=== PATIENT | male | born 1975 | race Caucasian/White ===

== ENCOUNTER 2017-12-24 11:55 | Observation (INO) | payer OTHER ==
[~2017-12-24 11:55] MED LIST: GLYCOPYRROLATE INJ 0.4 MG/2 ML VIAL ONE; NEOSTIGMINE METHYLSULFATE 10 MG/10 ML VIAL ONE; SUCCINYLCHOLINE CHLORIDE INJ 200 MG/10 ML VIAL ONE; VECURONIUM BROMIDE INJ 10 MG VIAL IV ONE
--- NOTE | 2017-12-24 12:17 | ER Document Report ---
ED Medical Screen (RME) - General Chief Complaint: Abdominal Pain Stated Complaint: ABDOMINAL PAIN Time Seen by Provider: 12/24/17 12:12 Notes: RAPID MEDICAL EVALUATION DISCLOSURE I have seen this patient as part of a Rapid Medical Evaluation and, if applicable, placed any initially appropriate orders. The patient will be seen and fully evaluated, including a full history and physical exam, by a provider ( in Main ED or Fast Track) when a room becomes available. 42M sent here from urgent care for right lower quadrant abdominal pain that started yesterday. Pain is been constant. Pain is worse with standing. He has had some chills but no fevers nausea vomiting diarrhea hematuria dysuria frequency hesitancy flank/back pain. They sent him over here because his WBC count was 13.8. Of note, the patient is getting over a "virus" and was prescribed Tessalon Perles as well as prednisone which he finished 2 days ago. The paperwork he has with him reports "acute abdomen". EXAM Well-appearing nontoxic Able to stand without significant pain Minimal RLQ TTP, no CVA TTP No peritoneal signs TRAVEL OUTSIDE OF THE [place] IN LAST 30 DAYS: No - Related Data Allergies/Adverse Reactions: No Known Allergies Allergy (Verified 12/24/17 12:17) Physical Exam - Vital signs Vitals: Temp Pulse Resp BP Pulse Ox 97.7 F 74 16 122/92 H 98 12/24/17 11:59 12/24/17 11:59 12/24/17 11:59 12/24/17 11:59 12/24/17 11:59 Course - Vital Signs Vital signs: Temp Pulse Resp BP Pulse Ox 97.7 F 74 16 122/92 H 98 12/24/17 11:59 12/24/17 11:59 12/24/17 11:59 12/24/17 11:59 12/24/17 11:59
--- NOTE | 2017-12-24 12:43 | ER Document Report ---
ED General - General Chief Complaint: Abdominal Pain Stated Complaint: ABDOMINAL PAIN Time Seen by Provider: 12/24/17 12:12 Mode of Arrival: Ambulatory Information source: Patient Notes: 42-year-old male presents with complaints of right lower quadrant abdominal pain. Patient notes symptoms started yesterday associated with chills, had fever today. Patient has had hernia repair and skin graft on his abdomen when he was younger otherwise no previous surgeries TRAVEL OUTSIDE OF THE [place] IN LAST 30 DAYS: No - HPI Onset: Yesterday Onset/Duration: Sudden Quality of pain: Pressure Severity: Mild Pain Level: 1 Associated symptoms: Other Exacerbated by: Movement Relieved by: Denies Similar symptoms previously: No Recently seen / treated by doctor: Yes - Patient sent in from [facility] urgent care - Related Data Allergies/Adverse Reactions: No Known Allergies Allergy (Verified 12/24/17 12:17) Past Medical History - Social History Smoking Status: Never Smoker Cigarette use (# per day): No Chew tobacco use (# tins/day): No Smoking Education Provided: No Frequency of alcohol use: Occasional Drug Abuse: None Family History: Reviewed & Not Pertinent Patient has suicidal ideation: No Patient has homicidal ideation: No Renal/ Medical History: Denies: Hx Peritoneal Dialysis Past Surgical History: Reports: Hx Orthopedic Surgery Review of Systems - Review of Systems Notes: REVIEW OF SYSTEMS: CONSTITUTIONAL : Admits to fever chill EENT: Denies eye, ear, throat, or mouth pain or symptoms. Denies nasal or sinus congestion or discharge. Denies throat, tongue, or mouth swelling or difficulty swallowing. CARDIOVASCULAR: Denies chest pain. Denies palpitations or racing or irregular heart beat. Denies ankle edema. RESPIRATORY: Intermittent cough GASTROINTESTINAL: Admits to right lower quadrant abdominal pain GENITOURINARY: Denies difficulty urinating, painful urination, burning, frequency, blood in urine, or discharge. MUSCULOSKELETAL: Denies back or neck pain or stiffness. Denies joint pain or swelling. SKIN: Denies rash, lesions or sores. HEMATOLOGIC : Denies easy bruising or bleeding. LYMPHATIC: Denies swollen, enlarged glands. NEUROLOGICAL: Denies confusion or altered mental status. Denies passing out or loss of consciousness. Denies dizziness or lightheadedness. Denies headache. Denies weakness or paralysis or loss of use of either side. Denies problems with gait or speech. Denies sensory loss, numbness, or tingling. Denies seizures. PSYCHIATRIC: Denies anxiety or stress. Denies depression, suicidal ideation, or homicidal ideation. ALL OTHER SYSTEMS REVIEWED AND NEGATIVE. Dictation was performed using [employer] voice recognition software PHYSICAL EXAMINATION: GENERAL: Well-appearing, well-nourished and in no acute distress. HEAD: Atraumatic, normocephalic. EYES: Pupils equal round and reactive to light, extraocular movements intact, sclera anicteric, conjunctiva are normal. ENT: Nares patent, oropharynx clear without exudates. Moist mucous membranes. NECK: Normal range of motion, supple without lymphadenopathy LUNGS: Breath sounds clear to auscultation bilaterally and equal. No wheezes rales or rhonchi. HEART: Regular rate and rhythm without murmurs ABDOMEN: Soft, mild tenderness right lower quadrant no rebound or guarding Musculoskeletal: Normal range of motion, no pitting or edema. No cyanosis. NEUROLOGICAL: Cranial nerves grossly intact. Normal speech, normal gait. Normal sensory, motor exams PSYCH: Normal mood, normal affect. SKIN: Warm, Dry, normal turgor, no rashes or lesions noted. Physical Exam - Vital signs Vitals: Temp Pulse Resp BP Pulse Ox 97.7 F 74 16 122/92 H 98 12/24/17 11:59 12/24/17 11:59 12/24/17 11:59 12/24/17 11:59 12/24/17 11:59 Course - Re-evaluation Re-evalutation: 12/24/17 12:42 Patient overall looks benign however his more stoic, lab work imaging pending 12/24/17 17:10 CT was consistent with appendicitis surgeon was consulted and will take the patient to the OR - Vital Signs Vital signs: Temp Pulse Resp BP Pulse Ox 98.6 F 72 16 126/80 H 98 12/24/17 16:02 12/24/17 16:02 12/24/17 16:02 12/24/17 16:02 12/24/17 16:02 - Laboratory Result Diagrams: 12/24/17 12:22 12/24/17 12:22 Laboratory results interpreted by me: 12/24/17 12/24/17 12:22 12:22 WBC 11.7 H Absolute Neutrophils 9.1 H Carbon Dioxide 31 H Glucose 114 H AST 14 L Alkaline Phosphatase 29 L - Diagnostic Test Radiology reviewed: Image reviewed - ct abd pelvis with oral and iv contrast notes acute appendicitis, Reports reviewed Discharge - Discharge Clinical Impression: Appendicitis Qualifiers: Appendicitis type: acute appendicitis Acute appendicitis type: with localized peritonitis Qualified Code(s): K35.3 - Acute appendicitis with localized peritonitis Condition: Stable Disposition: ADMITTED OBSERVATION Admitting Provider: Surgicalist Unit Admitted: Surgical Floor
[2017-12-24 12:45] LABS: ABSOLUTE EOSINOPHILS # (AUTO) 0.2 10^3/uL (0.0-0.6); ABSOLUTE LYMPHOCYTES (AUTO) 1.7 10^3/uL (0.5-4.7); ABSOLUTE MONOCYTES (AUTO) 0.6 10^3/uL (0.1-1.4); ABSOLUTE NEUT (AUTO) 9.1 10^3/uL (1.7-8.2); BASOPHILS % (AUTO) 0.4 % (0-2); EOSINOPHILS % (AUTO) 1.4 % (0-6); HEMATOCRIT 48.2 % (37.9-51.0); MEAN CORPUSCULAR HEMOGLOBIN 29.9 pg (27.0-33.4); MEAN CORPUSCULAR HGB CONC 33.2 g/dL (32.0-36.0); MEAN CORPUSCULAR VOLUME 90 fl (80-97); MONOCYTES % (AUTO) 5.5 % (3-13); PLATELET COUNT 219 10^3/uL (150-450); RED BLOOD COUNT 5.35 10^6/uL (4.35-5.55); RED CELL DISTRIBUTION WIDTH 13.9 % (11.5-14.0); SEGMENTED NEUTROPHILS % (AUTO) 77.7 % (42-78); TOTAL CELLS COUNTED % (AUTO) 100 %; WHITE BLOOD COUNT 11.7 10^3/uL (4.0-10.5)
[2017-12-24 12:49] LABS: APPEARANCE,URINE SLIGHTLY-CLOUDY; BILIRUBIN,URINE NEGATIVE (NEGATIVE); COLOR,URINE YELLOW; GLUCOSE, URINE NEGATIVE (NEGATIVE); KETONES,URINE NEGATIVE (NEGATIVE); LEUKOCYTE ESTERASE,URINE NEGATIVE (NEGATIVE); NITRITE,URINE NEGATIVE (NEGATIVE); PROTEIN,URINE NEGATIVE (NEGATIVE); URINE SPECIFIC GRAVITY 1.027; UROBILINOGEN,URINE NEGATIVE mg/dL (<2.0)
[2017-12-24 13:04] LABS: ALANINE AMINOTRANSFERASE 29 U/L (21-72); ALBUMIN 4.1 g/dL (3.5-5.0); ALKALINE PHOSPHATASE 29 U/L (38-126); ANION GAP 12 (5-19); ASPARTATE AMINO TRANSFERASE 14 U/L (17-59); BILIRUBIN,DIRECT 0.2 mg/dL (0.0-0.4); BILIRUBIN,TOTAL 0.8 mg/dL (0.2-1.3); BLOOD UREA NITROGEN 16 mg/dL (7-20); CALCIUM 9.5 mg/dL (8.4-10.2); CARBON DIOXIDE 31 mmol/L (22-30); CHLORIDE 100 mmol/L (98-107); GLUCOSE 114 mg/dL (75-110); LIPASE 58.2 U/L (23-300); POTASSIUM 4.4 mmol/L (3.6-5.0); TOTAL PROTEIN 6.7 g/dL (6.3-8.2)
--- NOTE | 2017-12-24 15:49 | RADIOLOGY REPORT (SQ) ---
EXAM DESCRIPTION: CT ABD/PELVIS WITH IV ORAL COMPLETED DATE/TIME: 12/24/2017 3:19 pm REASON FOR STUDY: RLQ pain COMPARISON: None. TECHNIQUE: CT scan of the abdomen and pelvis performed using helical scanning technique with dynamic intravenous contrast injection. Patient drank oral contrast. Images reviewed with lung, soft tissue , and bone windows. Reconstructed coronal and sagittal MPR images reviewed. Delayed images for evalua tion of the urinary system also acquired. All images stored on PACS. All CT scanners at this facility use dose modulation, iterative reconstruction, and/or weight based d osing when appropriate to reduce radiation dose to as low as reasonably achievable (ALARA). [facility]: Dose Right [facility]: CareDose [facility]: Dose Right [facility]: Teradose 4D [facility]: Your Office Agent CONTRAST TYPE AND DOSE: 94 mL of IV Isovue 370- low osmolar. RENAL FUNCTION: Creatinine 1.0 RADIATION DOSE: 20 mGy. LIMITATIONS: None. FINDINGS: The appendix is diffusely enlarged, with surrounding inflammation in the periappendiceal f at from acute appendicitis. This is best shown on axial images 71-75, coronal reconstruction images 26-35, and sagittal images 43-47. No periappendiceal abscess. No free air adjacent the appendix. F indings called to Stacey Ledbetter in the emergency room. LOWER CHEST: No significant findings. No nodules or infiltrates. LIVER: Normal size. No masses. No dilated ducts. SPLEEN: Normal size. No focal lesions. PANCREAS: No masses. No significant calcifications. No adjacent inflammation or peripancreatic fluid collections. Pancreatic duct not dilated. GALLBLADDER: No identified stones by CT criteria. No inflammatory changes to suggest cholecystitis. ADRENAL GLANDS: No significant masses or asymmetry. RIGHT KIDNEY AND URETER: No solid masses. No significant calcifications. No hydronephrosis or hyd roureter. LEFT KIDNEY AND URETER: No solid masses. No significant calcifications. No hydronephrosis or hydr oureter. AORTA AND VESSELS: No aneurysm. No dissection. Renal arteries, SMA, celiac without stenosis. RETROPERITONEUM: No retroperitoneal adenopathy, hemorrhage or masses. BOWEL AND PERITONEAL CAVITY: No masses or inflammatory changes. No free fluid or peritoneal masses. APPENDIX: As above. PELVIS: No mass. No free fluid. Normal bladder. ABDOMINAL WALL: No masses. No hernias. BONES: No significant or acute findings. OTHER: No other significant finding. IMPRESSION: Acute appendicitis. No periappendiceal free fluid or air. TECHNICAL DOCUMENTATION: JOB ID: [id number] Quality ID # [id number]: Final reports with documentation of one or more dose reduction techniques (e.g., Au tomated exposure control, adjustment of the mA and/or kV according to patient size, use of iterative reconstruction technique) 2010 [employer]- All Rights Reserved Reading location - IP/workstation name: [facility]
[2017-12-24] MEDS ORDERED: NORMAL SALINE 1000 ML 1,000 ML IV ONE (15:50)
[2017-12-24] MEDS ORDERED: LIDOCAINE 2% INJ-PF (20 MG/ML) 10 ML AMPUL ONE (16:50)
[2017-12-24] MEDS ORDERED: DEXAMETHASONE SOD PHOSPHATE INJ 4 MG/1 ML VIAL ONE (16:51)
[2017-12-24] MEDS ORDERED: MIDAZOLAM 2 MG/2 ML INJ ONE (16:51)
[2017-12-24] MEDS ORDERED: PROPOFOL INJ 200 MG/20 ML VIAL IV ONE (16:51)
[2017-12-24] MEDS ORDERED: ONDANSETRON HCL INJ/PF 4 MG/2 ML SDV ONE (16:51)
[2017-12-24] MEDS ORDERED: FENTANYL CITRATE INJ/PF 100 MCG/2 ML AMPUL ONE (16:51)
[2017-12-24] MEDS ORDERED: ACETAMINOPHEN 100 ML IV ONE (16:52)
[2017-12-24] MEDS ORDERED: CEFOXITIN SODIUM 2 GM in DEXTROSE 5%-WATER 100 ML IV PRN (16:52)
--- NOTE | 2017-12-24 16:52 | PDOC H&P ---
History of Present Illness Admission Date/PCP: 12/24/17 16:01 PHILLIP WRIGHT NP Patient complains of: RLQ abdominal pain History of Present Illness: PAO SAPP is a 42 year old male with a 1 day hx of RLQ abdoiminal poain. He came to the ER with this complaint and an acute appendicitis has been identified on CT scan A/P Past Surgical History Past Surgical History: Reports: Orthopedic Surgery Social History Smoking Status: Never Smoker Family History Family History: Reviewed & Not Pertinent Parental Family History Reviewed: No Children Family History Reviewed: No Sibling(s) Family History Reviewed.: No Medication/Allergy Home Medications: No Home Medications 12/24/17 Allergies/Adverse Reactions: No Known Allergies Allergy (Verified 12/24/17 12:17) Physical Exam Vital Signs: Temp Pulse Resp BP Pulse Ox 98.6 F 72 16 126/80 H 98 12/24/17 16:02 12/24/17 16:02 12/24/17 16:02 12/24/17 16:02 12/24/17 16:02 General appearance: PRESENT: no acute distress, cooperative Head exam: PRESENT: atraumatic Neck exam: PRESENT: full ROM Respiratory exam: PRESENT: clear to auscultation arslan Cardiovascular exam: PRESENT: RRR GI/Abdominal exam: PRESENT: hypoactive bowel sounds, soft, tenderness - RLQ Neurological exam: PRESENT: alert, altered, CN II-XII grossly intact, normal gait Skin exam: PRESENT: warm Results Impressions: Abdomen/Pelvis CT 12/24/17 00:00 IMPRESSION: Acute appendicitis. No periappendiceal free fluid or air. Assessment & Plan - Diagnosis (1) Appendicitis Qualifiers: Appendicitis type: acute appendicitis Acute appendicitis type: with localized peritonitis Qualified Code(s): K35.3 - Acute appendicitis with localized peritonitis Is this a current diagnosis for this admission?: Yes - Plan Summary Plan Summary: A/ RLQ abdominal pain Normal blood work CT scan A/P significant for acute appendicitis w/o perforation signs P/ Laparoscopic appendectomy, possible open Procedure, risks, complications d/w patient, he understands all of them and decides to proceed
[2017-12-24] MEDS ORDERED: BUPIVACAINE HCL 0.5%-EPI 1:200000 INJ/PF 30 ML VIAL ONE (17:12)
[2017-12-24] MEDS ORDERED: MORPHINE SULFATE 10 MG/ML INJ IV PRN (17:54)
[2017-12-24] MEDS ORDERED: PROMETHAZINE HCL INJ 25 MG/1 ML VIAL IV PRN ×2 (17:54)
[2017-12-24] MEDS ORDERED: ONDANSETRON HCL INJ/PF 4 MG/2 ML SDV IV PRN ×2 (17:54→18:57)
[2017-12-24] MEDS ORDERED: FENTANYL CITRATE INJ/PF 100 MCG/2 ML AMPUL IV PRN ×3 (17:54)
[2017-12-24] MEDS ORDERED: MEPERIDINE HCL/PF INJ 25 MG/1 ML DISP.SYRIN IV PRN (17:54)
[2017-12-24] MEDS ORDERED: DIPHENHYDRAMINE HCL 50 MG/ML VIAL IV PRN (17:54)
--- NOTE | 2017-12-24 18:41 | Operative Report ---
Operative Report DATE OF SURGERY: 12/24/17 PREOPERATIVE DIAGNOSIS: acute appendicitis POSTOPERATIVE DIAGNOSIS: same with periappendiceal inflammation OPERATION: laparosocpic appendectomy SURGEON: SUSAN FROST ANESTHESIA: GA - pus 20 mL 0.5% marcaine TISSUE REMOVED OR ALTERED: appendix COMPLICATIONS: none ESTIMATED BLOOD LOSS: < 5 mL INTRAOPERATIVE FINDINGS: severely inlflamed, not perforated appendix PROCEDURE: see dictation
[2017-12-24] MEDS ORDERED: NORMAL SALINE 1000 ML 1,000 ML IV PRN (18:54)
[2017-12-24] MEDS ORDERED: HYDROMORPHONE HCL INJ/PF 2 MG/ML AMPULE IV PRN (18:56)
[2017-12-24] MEDS: FENTANYL CITRATE INJ/PF 100 MCG/2 ML AMPUL ONE ×2 (18:58→19:05)
[2017-12-24] MEDS: GUAIFENESIN/D-METHORPHAN (200-20 MG) SYRUP 10 ML PO PRN (20:35)
[2017-12-24] MEDS: FAMOTIDINE INJ/PF 20 MG/2 ML SDV IV SCH (21:44)
[2017-12-25] MEDS: CEFOXITIN SODIUM 2 GM in DEXTROSE 5%-WATER 100 ML IV SCH ×3 (02:23→18:01)
[2017-12-25 06:50] LABS: HEMATOCRIT 43.3 % (37.9-51.0); HEMOGLOBIN 14.8 g/dL (13.5-17.0); MEAN CORPUSCULAR HEMOGLOBIN 30.4 pg (27.0-33.4); MEAN CORPUSCULAR HGB CONC 34.1 g/dL (32.0-36.0); MEAN CORPUSCULAR VOLUME 89 fl (80-97); PLATELET COUNT 202 10^3/uL (150-450); RED BLOOD COUNT 4.85 10^6/uL (4.35-5.55); RED CELL DISTRIBUTION WIDTH 13.4 % (11.5-14.0); WHITE BLOOD COUNT 12.3 10^3/uL (4.0-10.5)
[2017-12-25 07:01] LABS: ANION GAP 8 (5-19); BLOOD UREA NITROGEN 10 mg/dL (7-20); CALCIUM 8.9 mg/dL (8.4-10.2); CARBON DIOXIDE 25 mmol/L (22-30); CHLORIDE 107 mmol/L (98-107); GLUCOSE 117 mg/dL (75-110); POTASSIUM 4.4 mmol/L (3.6-5.0); SODIUM 140.1 mmol/L (137-145)
[2017-12-25] MEDS: ENOXAPARIN SODIUM INJ 40 MG/0.4 ML DISP.SYRIN SUBCUT SCH (08:22)
[2017-12-25] MEDS ORDERED: NAPROXEN 250 MG TABLET PO PRN (10:01)
[2017-12-25] MEDS: FAMOTIDINE INJ/PF 20 MG/2 ML SDV IV SCH (10:36)
[2017-12-25] MEDS: GUAIFENESIN/D-METHORPHAN (200-20 MG) SYRUP 10 ML PO PRN ×2 (11:11→20:37)
--- NOTE | 2017-12-25 11:12 | OPERATIVE REPORT E ---
Operative Report NAME: PAO SAPP : 1975 AGE: 42Y DATE OF SURGERY: 12/24/2017 ROOM: 436 PREOPERATIVE DIAGNOSIS: ACUTE APPENDICITIS. POSTOPERATIVE DIAGNOSIS: ACUTE APPENDICITIS WITH PERIAPPENDICEAL INFLAMMATION OPERATION: LAPAROSCOPIC APPENDECTOMY. SURGEON: SUSAN FROST M.D. CLIENT SUPPORT MANAGER: None. ESTIMATED BLOOD LOSS: None. COMPLICATIONS: None. ANESTHESIA: General plus 20 mL of 0.5% Marcaine with epinephrine. FLUIDS: 1000 URINE OUTPUT: n/a DRAINS: None. INDICATION AND FINDINGS: This is a 42-year-old male who presented to the Emergency Room with a history of right upper quadrant pain for [address] scan of the abdomen and pelvis was done and revealed the patient to have acute appendicitis. His blood workup was within normal limits. The patient was scheduled to undergo laparoscopic appendectomy, possible open. DESCRIPTION OF PROCEDURE: He was taken to the operating room. The patient was placed in supine position. General anesthesia was induced by endotracheal intubation. Abdomen prepped and draped in usual fashion. Incision was made just above the umbilicus. A 5 mm port with Optiview adaptor and scope were inserted through the incision while the skin was tented with towel clips. The peritoneal cavity was entered. A CO2 pneumoperitoneum was established without difficulty. A 5 mm port was inserted in the right upper quadrant under direct visualization. The 5 mm port through the umbilicus was then removed and replaced by a 12 mm port inserted through the left lower quadrant of the abdomen. The 5 mm port was placed in the left lower quadrant. The patient was placed in Trendelenburg position with the right sided elevation. The peritoneal cavity was inspected. The cecum was identified and the anterior taenia was followed distally until the base of the appendix was seen. The appendix was found to be enlarged, thickened with severe periappendiceal inflammation but no camilo perforation was identified. At this point, the appendix was grasped at the level of the distal end, elevated. The mesoappendix was then divided with a ligature and the appendix was then stapled at the base, extracted from the peritoneal cavity with an Endobag and CO2 pneumoperitoneum was re-established. The peritoneal cavity was then irrigated with about 1.5 L of warm normal saline which was fully aspirated until clear. The fascial defect of the umbilicus was closed with a [id number] 0 Vicryl suture. The suture was then left untied. All instruments were removed. The CO2 pneumoperitoneum was released. The ports were removed. The fascial defect of the umbilicus was closed with the previously-placed 0 Vicryl [id number] suture. All skin incisions were closed with 4 running subcuticular Vicryl sutures. Dermabond was then applied. The patient tolerated the procedure well, extubated, and transferred to the recovery room in satisfactory condition. DICTATING PHYSICIAN: SUSAN FROST M.D. [id number] PHY#: [id number] ID: [id number] JOB#: [id number] ACCT: [id number] cc:SUSAN FROST M.D. > MTDD
[2017-12-25] MEDS ORDERED: FAMOTIDINE 20 MG TABLET PO SCH (11:30)
--- NOTE | 2017-12-25 11:37 | PDOC PROGRESS REPORT ---
Subjective Progress Note for:: 12/25/17 Subjective:: patient feels comfortable and has good appetite Reason For Visit: APPENDICITIS Physical Exam Vital Signs: Temp Pulse Resp BP Pulse Ox 98.3 F 64 14 120/67 98 12/25/17 08:43 12/25/17 08:43 12/25/17 08:43 12/25/17 08:43 12/25/17 08:43 Intake & Output 12/24/17 12/25/17 12/26/17 06:59 06:59 06:59 Intake Total 2850 Output Total 2552 Balance 298 Weight 87.5 kg General appearance: PRESENT: no acute distress, cooperative Respiratory exam: PRESENT: clear to auscultation arslan Cardiovascular exam: PRESENT: RRR GI/Abdominal exam: PRESENT: distended - slightly, hypoactive bowel sounds, soft , other - incisions C/D/I Results Laboratory Results: 12/25/17 06:36 12/25/17 06:36 12/25/17 12/25/17 06:36 06:36 WBC 12.3 H RBC 4.85 Hgb 14.8 Hct 43.3 MCV 89 MCH 30.4 MCHC 34.1 RDW 13.4 Plt Count 202 Sodium 140.1 Potassium 4.4 Chloride 107 Carbon Dioxide 25 Anion Gap 8 BUN 10 Creatinine 0.69 Est GFR ( Amer) > 60 Est GFR (Non-Af Amer) > 60 Glucose 117 H Calcium 8.9 Impressions: Abdomen/Pelvis CT 12/24/17 00:00 IMPRESSION: Acute appendicitis. No periappendiceal free fluid or air. Assessment & Plan - Diagnosis (1) Appendicitis Qualifiers: Appendicitis type: acute appendicitis Acute appendicitis type: with localized peritonitis Qualified Code(s): K35.3 - Acute appendicitis with localized peritonitis Is this a current diagnosis for this admission?: Yes - Plan Summary Plan Summary: A/ POD $1 after laparoscopic appendectomy for acute appendicitis with moderate periappendiceal inflammation VSS, AF WBC 12.1 PE shows a slightly distended abdomen, soft Needs one more day of IV abx because of the inflamed appendicitis P/ Continue regular diet Decreased IVF 75 mL/hr Continue IV Abx Stop narcotics IV Aleve/Tylenol for pain If patient continues to improve, discharge in AM 12/26/17
[2017-12-25] MEDS ORDERED: FAMOTIDINE 20 MG TABLET PO ONE (12:00)
[2017-12-25] MEDS: ACETAMINOPHEN 325 MG TABLET PO PRN ×2 (14:46→20:36)
[2017-12-25] MEDS: FAMOTIDINE 20 MG TABLET PO SCH (18:01)
[2017-12-26] MEDS: CEFOXITIN SODIUM 2 GM in DEXTROSE 5%-WATER 100 ML IV SCH ×2 (01:58→10:19)
[2017-12-26] MEDS: FAMOTIDINE 20 MG TABLET PO SCH (05:47)
[2017-12-26 06:14] LABS: HEMATOCRIT 41.8 % (37.9-51.0); MEAN CORPUSCULAR HEMOGLOBIN 30.1 pg (27.0-33.4); MEAN CORPUSCULAR HGB CONC 33.6 g/dL (32.0-36.0); MEAN CORPUSCULAR VOLUME 90 fl (80-97); PLATELET COUNT 192 10^3/uL (150-450); RED BLOOD COUNT 4.66 10^6/uL (4.35-5.55); RED CELL DISTRIBUTION WIDTH 13.6 % (11.5-14.0); WHITE BLOOD COUNT 8.9 10^3/uL (4.0-10.5)
[2017-12-26 06:32] LABS: ANION GAP 10 (5-19); BLOOD UREA NITROGEN 14 mg/dL (7-20); CALCIUM 8.8 mg/dL (8.4-10.2); CARBON DIOXIDE 24 mmol/L (22-30); CHLORIDE 109 mmol/L (98-107); GLUCOSE 91 mg/dL (75-110); SODIUM 142.7 mmol/L (137-145)
[2017-12-26] MEDS: ENOXAPARIN SODIUM INJ 40 MG/0.4 ML DISP.SYRIN SUBCUT SCH (07:36)
[2017-12-26 08:38] VITALS: BP 118/71
--- NOTE | 2017-12-26 09:33 | PDOC PROGRESS REPORT ---
Subjective Progress Note for:: 12/26/17 Subjective:: no c/o. tolerating po well Reason For Visit: APPENDICITIS Physical Exam Vital Signs: Temp Pulse Resp BP Pulse Ox 97.8 F 63 16 118/71 96 12/26/17 07:31 12/26/17 07:31 12/26/17 07:31 12/26/17 07:31 12/26/17 07:31 Intake & Output 12/25/17 12/26/17 12/27/17 06:59 06:59 06:59 Intake Total 2850 3126 Output Total 2552 1825 Balance 298 1301 Weight 87.5 kg 87.1 kg General appearance: PRESENT: no acute distress, cooperative Respiratory exam: PRESENT: clear to auscultation arslan Cardiovascular exam: PRESENT: RRR GI/Abdominal exam: PRESENT: soft, other - incisions c/d/i Results Laboratory Results: 12/26/17 05:34 12/26/17 05:34 12/26/17 12/26/17 05:34 05:34 WBC 8.9 RBC 4.66 Hgb 14.0 Hct 41.8 MCV 90 MCH 30.1 MCHC 33.6 RDW 13.6 Plt Count 192 Sodium 142.7 Potassium 4.0 Chloride 109 H Carbon Dioxide 24 Anion Gap 10 BUN 14 Creatinine 0.77 Est GFR ( Amer) > 60 Est GFR (Non-Af Amer) > 60 Glucose 91 Calcium 8.8 Impressions: Abdomen/Pelvis CT 12/24/17 00:00 IMPRESSION: Acute appendicitis. No periappendiceal free fluid or air. Assessment & Plan - Diagnosis (1) Appendicitis Qualifiers: Appendicitis type: acute appendicitis Acute appendicitis type: with localized peritonitis Qualified Code(s): K35.3 - Acute appendicitis with localized peritonitis Is this a current diagnosis for this admission?: Yes - Plan Summary Plan Summary: A/ POD #2 after laparoscopic appendectomy with periappendiceal inflammation VSS, AF Blood work WNL PE unremarkable P/ Home today resume all activities including driving shower only x 2 weeks, bathe afterward f/u in the Surgery office (Dr. Butcher) next week Tylenol only as needed for pain
--- NOTE | 2017-12-26 09:39 | DISCHARGE SUMMARY E ---
Discharge Summary NAME: PAO SAPP : 1975 AGE: 42Y ADMITTED: 12/24/2017 DISCHARGED: 12/26/2017 FINAL DIAGNOSIS: Acute appendicitis with periappendiceal inflammation. PROCEDURE: Laparoscopic appendectomy on 12/24/2017. COMPLICATIONS: None. HOSPITAL COURSE: This is a healthy 42-year-old male who presented to the emergency room with severe right lower quadrant pain, nausea, and found to have an acute appendicitis on CT scan. The patient was taken to surgery shortly after presentation to the emergency room on 12/24/2017 and underwent an uneventful laparoscopic appendectomy. His postop course was unremarkable. He was kept on IV antibiotics and IV fluids. His diet was advanced to regular, which was tolerated. His white cell count on the day of discharge was normal. His physical exam was unremarkable. Abdomen was soft. Incision was clean, dry, and intact, and the patient was able to tolerate his regular diet well. DISCHARGE ORDERS: The patient was discharged home on 12/26/2017 and was given instructions to follow up with the surgical office in a week. No wound care needed. Shower only for 2 weeks, after which the patient can bathe. Tylenol only for pain. Activities as tolerated and regular diet. DICTATING PHYSICIAN: SUSAN FROST M.D. [id number] PHY#: [id number] ID: [id number] JOB#: [id number] ACCT: [id number] cc:SUSAN FROST M.D. [facility]
[2017-12-26] MEDS: GUAIFENESIN/D-METHORPHAN (200-20 MG) SYRUP 10 ML PO PRN (10:20)
== END 2017-12-26 14:00 | disposition home or self-care (01) ==
LOC: ER 11:55 → EH 16:01 → 4S 20:12
PROVIDERS: ATTEND Surgery
PROC: 0DTJ4ZZ Resection of Appendix, Percutaneous Endoscopic Approach (ICD-10-PCS; principal; 2017-12-24 16:45)
DX: K35.3 Acute appendicitis with localized peritonitis (principal); Z98.890 Other specified postprocedural states
CPT/HCPCS: 99285; 96360; 36415 ×3; 83690; 85025; 85027 ×2; 80048 ×2; 80053; 81001; 88304 ×2; 74177; 44970; J2250; J3490 ×6; J1100; J0694 ×2; J3010; J1650 ×2; J0330; J2405; J7030; J2704; S0028 ×2; J0131; 840

== ENCOUNTER 2018-02-12 11:17 | Emergency (ER) | payer OTHER ==
[2018-02-12 11:28] VITALS: BP 121/89
--- NOTE | 2018-02-12 11:55 | ER Document Report ---
ED General - General Mode of Arrival: Ambulatory Information source: Patient TRAVEL OUTSIDE OF THE [place] IN LAST 30 DAYS: No - General Chief Complaint: Shortness Of Breath Stated Complaint: SHORTNESS OF BREATH Notes: 42 y.o male presents to the ED with SOB and Heart racing. He reports that he was spraying RAID mon[place] killer for bugs around the house an hour ago and then about 20 minutes after spraying he started to get SOB and his heart started racing. Pt denies any ingestion of the RAID or getting it on his hands. Pt denies any medical issues or taking any at home medications. He states that he is now not feeling his heart race or SOB, he does not have any other complaints at this time. (MARCELL PITTS) - Related Data Allergies/Adverse Reactions: No Known Allergies Allergy (Verified 02/12/18 11:46) Past Medical History - General Information source: Patient - Social History Smoking Status: Never Smoker Chew tobacco use (# tins/day): No Frequency of alcohol use: None Drug Abuse: None Family History: Reviewed & Not Pertinent Patient has suicidal ideation: No Patient has homicidal ideation: No Renal/ Medical History: Denies: Hx Peritoneal Dialysis Psychiatric Medical History: Denies: Hx Depression Past Surgical History: Reports: Hx Orthopedic Surgery Review of Systems - Review of Systems Constitutional: No symptoms reported EENT: No symptoms reported Cardiovascular: See HPI, Heart racing Respiratory: See HPI, Short of breath Gastrointestinal: No symptoms reported Genitourinary: No symptoms reported Male Genitourinary: No symptoms reported Musculoskeletal: No symptoms reported Skin: No symptoms reported Hematologic/Lymphatic: No symptoms reported Neurological/Psychological: No symptoms reported -: Yes All other systems reviewed and negative Physical Exam - Vital signs Vitals: Temp Pulse Resp BP Pulse Ox 98.7 F 86 18 121/89 H 98 02/12/18 11:24 02/12/18 11:24 02/12/18 11:24 02/12/18 11:24 02/12/18 11:24 - Notes Notes: Physical Exam: General: Alert, appears well. HEENT: Normocephalic. Atraumatic. PERRL. Extraocular movements intact. Oropharynx clear. Neck: Supple. Non-tender. Respiratory: No respiratory distress. Good air movement. Clear and equal breath sounds bilaterally, no crackles or wheezes. Cardiovascular: Regular rate and rhythm. Abdominal: Normal Inspection. Non-tender. No distension. Normal Bowel Sounds. Back: Non-tender. No deformity or step off. Extremities: Moves all four extremities. Upper extremities: Normal inspection. Normal ROM. Lower extremities: Normal inspection. No edema. Normal ROM. Neurological: Normal cognition. AAOx3. Normal speech. Psychological: Normal affect. Normal Mood. Skin: Warm. Dry. Normal color. (MARCELL PITTS) Course - Re-evaluation Re-evalutation: 02/12/18 11:56 Well-appearing with sprain bug spray on the sides the house was not wearing a mask at which point begin to feel like he had shortness of breath which is now resolved in the emergency department. His vitals are normal he is in no distress his lungs are no crackles or wheezes. Spent time with patient educating on when using household chemicals to use proper protective equipment. Return precautions were provided to patient. (KLEVER GUERRERO) - Vital Signs Vital signs: Temp Pulse Resp BP Pulse Ox 98.7 F 86 18 121/89 H 98 02/12/18 11:24 02/12/18 11:24 02/12/18 11:24 02/12/18 11:24 02/12/18 11:24 Discharge - Discharge Clinical Impression: Chemical exposure Condition: Good Disposition: HOME, SELF-CARE Additional Instructions: Please use personal protective equipment that we discussed when using household chemicals. Referrals: PHILLIP WRIGHT NP [Primary Care Provider] - Follow up as needed Scribe Attestation: 02/12/18 20:02 I personally performed the services described documentation, reviewed and edited the documentation which was dictated to describe my presence, and it accurately records my words and actions. (KLEVER GUERRERO) Scribe Documentation - Scribe Written by Scribe:: Juana Cano 02/12/18 [id number] acting as scribe for :: Hiren
== END 2018-02-12 12:26 | disposition home or self-care (01) ==
LOC: ER 11:17
DX: Z77.098 Contact with and (suspected) exposure to other hazardous, chiefly nonmedicinal, chemicals (principal); R06.02 Shortness of breath
CPT/HCPCS: 99283

== ENCOUNTER 2019-07-23 20:14 | Emergency (ER) | payer OTHER ==
[2019-07-23] MEDS ORDERED: NORMAL SALINE 1000 ML 1,000 ML IV ONE ×2 (20:45→21:54)
--- NOTE | 2019-07-23 20:46 | ER Document Report ---
ED Medical Screen (RME) - General Chief Complaint: Headache Stated Complaint: HEADACHE Time Seen by Provider: 07/23/19 20:26 Primary Care Provider: PHILLIP WRIGHT NP [Primary Care Provider] - Follow up as needed TRAVEL OUTSIDE OF THE [place] IN LAST 30 DAYS: No - HPI Notes: 07/23/19 20:46 44-year-old male presents to the emergency room for complaints of a headache that has been off and on today after being exposed to high levels of what he thinks is methane from event or gases from event while he was at work today. Patient denies any syncopal event. Patient states he does feel dizzy. Denies previous history of headaches or migraines. Denies any new medications foods or travel. Denies any nausea vomiting, fevers chills, abdominal pain. Denies chest pain I have greeted and performed a rapid initial assessment of this patient. A comprehensive ED assessment and evaluation of the patient, analysis of test results and completion of the medical decision making process will be conducted by additional ED providers. PHYSICAL EXAMINATION: GENERAL: Well-appearing, well-nourished and in no acute distress. HEAD: Atraumatic, normocephalic. EYES: Pupils equal round extraocular movements intact, conjunctiva are normal. ENT: Nares patent NECK: Normal range of motion LUNGS: No respiratory distress Musculoskeletal: Normal range of motion NEUROLOGICAL: Normal speech, normal gait. PSYCH: Normal mood, normal affect. SKIN: Warm, Dry, normal turgor, no rashes or lesions noted. - Related Data Allergies/Adverse Reactions: No Known Allergies Allergy (Verified 02/12/18 11:46) Past Medical History Renal/ Medical History: Denies: Hx Peritoneal Dialysis Psychiatric Medical History: Denies: Hx Depression Past Surgical History: Reports: Hx Orthopedic Surgery Physical Exam - Vital signs Vitals: Temp Pulse Resp BP Pulse Ox 98.2 F 80 16 134/91 H 100 07/23/19 20:33 07/23/19 20:33 07/23/19 20:33 07/23/19 20:33 07/23/19 20:33 Course - Vital Signs Vital signs: Temp Pulse Resp BP Pulse Ox 98.2 F 80 16 134/91 H 100 07/23/19 20:33 07/23/19 20:33 07/23/19 20:33 07/23/19 20:33 07/23/19 20:33 Doctor's Discharge - Discharge Referrals: PHILLIP WRIGHT NP [Primary Care Provider] - Follow up as needed
[2019-07-23 21:19] LABS: VENOUS BLOOD BASE EXCESS 3.1 mmol/L; VENOUS BLOOD HCO3 30.3 mmol/L (20-32); VENOUS BLOOD PCO2 55.3 mmHg (35-63); VENOUS BLOOD PH 7.36 (7.30-7.42)
[2019-07-23 21:22] LABS: ABSOLUTE EOSINOPHILS # (AUTO) 0.1 10^3/uL (0.0-0.6); ABSOLUTE LYMPHOCYTES (AUTO) 2.1 10^3/uL (0.5-4.7); ABSOLUTE MONOCYTES (AUTO) 0.7 10^3/uL (0.1-1.4); ABSOLUTE NEUT (AUTO) 7.8 10^3/uL (1.7-8.2); BASOPHILS % (AUTO) 0.3 % (0-2); EOSINOPHILS % (AUTO) 1.4 % (0-6); HEMATOCRIT 46.8 % (37.9-51.0); LYMPHOCYTES % (AUTO) 19.7 % (13-45); MEAN CORPUSCULAR HEMOGLOBIN 30.4 pg (27.0-33.4); MEAN CORPUSCULAR HGB CONC 34.2 g/dL (32.0-36.0); MEAN CORPUSCULAR VOLUME 89 fl (80-97); MONOCYTES % (AUTO) 6.9 % (3-13); PLATELET COUNT 199 10^3/uL (150-450); RED BLOOD COUNT 5.26 10^6/uL (4.35-5.55); RED CELL DISTRIBUTION WIDTH 13.3 % (11.5-14.0); SEGMENTED NEUTROPHILS % (AUTO) 71.7 % (42-78); TOTAL CELLS COUNTED % (AUTO) 100 %; WHITE BLOOD COUNT 10.8 10^3/uL (4.0-10.5)
[2019-07-23 21:38] LABS: ALBUMIN 4.5 g/dL (3.5-5.0); ALKALINE PHOSPHATASE 27 U/L (38-126); ANION GAP 10 (5-19); ASPARTATE AMINO TRANSFERASE 24 U/L (17-59); BILIRUBIN,TOTAL 0.6 mg/dL (0.2-1.3); BLOOD UREA NITROGEN 22 mg/dL (7-20); CALCIUM 9.5 mg/dL (8.4-10.2); CARBON DIOXIDE 29 mmol/L (22-30); CHLORIDE 102 mmol/L (98-107); GLUCOSE 94 mg/dL (75-110); POTASSIUM 4.3 mmol/L (3.6-5.0); TOTAL PROTEIN 7.1 g/dL (6.3-8.2)
--- NOTE | 2019-07-23 23:34 | ER Document Report ---
ED General - General Chief Complaint: Headache Stated Complaint: HEADACHE Time Seen by Provider: 07/23/19 20:26 Primary Care Provider: PHILLIP WRIGHT NP [Primary Care Provider] - Follow up in 3-5 days Notes: 44-year-old male presents with intermittent headache and lightheadedness all day. Patient states he was exposed to [place] sulfuric acid at work. Patient denies any chest pain, dyspnea, direct contact with skin, fevers, nausea/vomiting/diarrhea, abdominal pain. TRAVEL OUTSIDE OF THE [place] IN LAST 30 DAYS: No - Related Data Allergies/Adverse Reactions: No Known Allergies Allergy (Verified 02/12/18 11:46) Home Medications: denies Past Medical History - Social History Smoking Status: Never Smoker Chew tobacco use (# tins/day): No Frequency of alcohol use: Occasional Drug Abuse: None Family History: Reviewed & Not Pertinent Patient has suicidal ideation: No Patient has homicidal ideation: No Renal/ Medical History: Denies: Hx Peritoneal Dialysis Psychiatric Medical History: Denies: Hx Depression Past Surgical History: Reports: Hx Orthopedic Surgery Review of Systems - Review of Systems Notes: Constitutional: Negative for fever. HENT: Negative for sore throat. Eyes: Negative for visual changes. Cardiovascular: Negative for chest pain. Respiratory: Negative for shortness of breath. Gastrointestinal: Negative for abdominal pain, vomiting or diarrhea. Genitourinary: Negative for dysuria. Musculoskeletal: Negative for back pain. Skin: Negative for rash. Neurological: Positive for headaches and lightheadedness. Negative for weakness or numbness. 10 point ROS negative except as marked above and in HPI. Physical Exam - Vital signs Vitals: Temp Pulse Resp BP Pulse Ox 98.2 F 80 16 134/91 H 100 07/23/19 20:33 07/23/19 20:33 07/23/19 20:33 07/23/19 20:33 07/23/19 20:33 - Notes Notes: GENERAL: Well-appearing, well-nourished and in no acute distress. HEAD: Atraumatic, normocephalic. EYES: Pupils equal round and reactive to light, extraocular movements intact, sclera anicteric, conjunctiva are normal. NECK: Normal range of motion, supple without lymphadenopathy or JVD. LUNGS: Breath sounds clear to auscultation bilaterally and equal. No wheezes rales or rhonchi. HEART: Regular rate and rhythm without murmurs, rubs or gallops. ABDOMEN: Soft, nontender. No guarding, no rebound. No masses appreciated. EXTREMITIES: Normal range of motion, no pitting or edema. No clubbing or cyanosis. NEUROLOGICAL: Cranial nerves II through XII grossly intact. Normal speech, normal gait. Bilingual [employer] Representative strength equal bilaterally. PERRLA. EOMI intact bilaterally. No facial droop. No tongue deviation. Upper/lower extremity strength equal bilaterally. PSYCH: Normal mood, normal affect. SKIN: Warm, Dry, normal turgor, no rashes or lesions noted. Course - Re-evaluation Re-evalutation: 07/23/19 44-year-old male presents with intermittent headache and lightheadedness after inhalation exposure to hydrosulfuric acid. Patient's work-up included CBC, CMP, carboxyhemoglobin, and VBG. Patient is nontoxic, well-appearing. Regular rate and rhythm. Lungs clear to auscultation bilaterally. Patient denies any skin contact. VBG was within normal limits. Patient's lab work was otherwise unremarkable except for minor acute kidney injury. 1 L of normal saline bolus was given. 07/23/19 23:40 discussed all results with patient. Patient given strict return precautions. Patient given close follow-up with PCP. All questions/concerns addressed prior to discharge. - Vital Signs Vital signs: Temp Pulse Resp BP Pulse Ox 98.2 F 60 16 134/91 H 100 07/23/19 23:07 07/23/19 23:07 07/23/19 23:07 07/23/19 20:33 07/23/19 23:07 - Laboratory Result Diagrams: 07/23/19 21:01 07/23/19 21:01 Laboratory results interpreted by me: 07/23/19 07/23/19 21:01 21:01 WBC 10.8 H BUN 22 H Creatinine 1.34 H Est GFR (MDRD) Non-Af 58 L Alkaline Phosphatase 27 L Discharge - Discharge Clinical Impression: Chemical exposure Condition: Stable Disposition: HOME, SELF-CARE Additional Instructions: Your work-up today was reassuring. Please return to ER if you start having any worsening symptoms, including chest pain, shortness of breath, fever, increased headaches, dizziness, passing out, abdominal pain, nausea/vomiting, or any other symptoms that are concerning to you. Please follow-up with your primary care doctor in 3 to 5 days. Referrals: PHILLIP WRIGHT NP [Primary Care Provider] - Follow up in 3-5 days
[2019-07-23 23:48] VITALS: BP 127/87
--- NOTE | 2019-07-24 21:51 | EKG REPORT ---
SEVERITY:- BORDERLINE ECG - SINUS RHYTHM LA ABNORMALITY. : Confirmed by: Max Grier MD 24-Jul-2019 21:50:31
== END 2019-07-24 00:02 | disposition home or self-care (01) ==
LOC: ER 20:14
DX: Z77.098 Contact with and (suspected) exposure to other hazardous, chiefly nonmedicinal, chemicals (principal); R51 Headache; R42 Dizziness and giddiness; N17.9 Acute kidney failure, unspecified
CPT/HCPCS: 93005; 99284; 96360; 36415; 82375; 85025; 80053; 82803; 93010; J7030

== ENCOUNTER 2019-09-17 11:33 | Emergency (ER) | payer OTHER ==
--- NOTE | 2019-09-17 12:37 | ER Document Report ---
ED Medical Screen (RME) - General Chief Complaint: Chest Pressure Stated Complaint: CHEST PRESSURE,LIGHTHEADED Time Seen by Provider: 09/17/19 12:33 Primary Care Provider: PHILLIP WRIGHT NP [Primary Care Provider] - Follow up as needed Mode of Arrival: Ambulatory Information source: Patient Notes: 44-year-old male presented to ED for chest pain and dizziness. He states the pain is a discomfort in his right center of chest he states he feels like squeezing. States it started about 10 AM. Just finished up with a meeting was not stressful. He states the last time he had chest pain was about 6 months ago. He states last time the chest pressure went away this time is been since 10 AM and is still there. He states the pain now is a 1 or 2. Has any heart pr oblems in the past. He has had chest pain before. He states he has never had a stress test or cardiac cath. Grandfather on mother's side of a sudden cardiac event at 50. I have greeted and performed a rapid initial assessment of this patient. A comprehensive ED assessment and evaluation of the patient, analysis of test results and completion of medical decision making process will be conducted by an additional ED providers. TRAVEL OUTSIDE OF THE [place] IN LAST 30 DAYS: No - Related Data Allergies/Adverse Reactions: No Known Allergies Allergy (Verified 02/12/18 11:46) Past Medical History Renal/ Medical History: Denies: Hx Peritoneal Dialysis Psychiatric Medical History: Denies: Hx Depression Past Surgical History: Reports: Hx Orthopedic Surgery Physical Exam - Vital signs Vitals: Temp Pulse Resp BP Pulse Ox 98.6 F 80 16 130/85 H 100 09/17/19 11:44 09/17/19 11:44 09/17/19 11:44 09/17/19 11:44 09/17/19 11:44 Course - Vital Signs Vital signs: Temp Pulse Resp BP Pulse Ox 98.6 F 80 16 130/85 H 100 09/17/19 11:44 09/17/19 11:44 09/17/19 11:44 09/17/19 11:44 09/17/19 11:44 Doctor's Discharge - Discharge Referrals: PHILLIP WRIGHT NP [Primary Care Provider] - Follow up as needed
[2019-09-17] MEDS ORDERED: ASPIRIN 81 MG TABLET, CHEWABLE PO ONE (12:38)
--- NOTE | 2019-09-17 13:27 | RADIOLOGY REPORT (SQ) ---
EXAM DESCRIPTION: CHEST 2 VIEWS COMPLETED DATE/TIME: 09/17/2019 12:17 pm REASON FOR STUDY: Chest pain pressure COMPARISON: None. EXAM PARAMETERS: NUMBER OF VIEWS: two views TECHNIQUE: Digital Frontal and Lateral radiographic views of the chest acquired. RADIATION DOSE: NA LIMITATIONS: none FINDINGS: LUNGS AND PLEURA: No opacities, masses or pneumothorax. No pleural effusion. MEDIASTINUM AND HILAR STRUCTURES: No masses or contour abnormalities. HEART AND VASCULAR STRUCTURES: Heart normal size. No evidence for failure. BONES: No acute findings. HARDWARE: None in the chest. OTHER: No other significant finding. IMPRESSION: NO ACUTE RADIOGRAPHIC FINDING IN THE CHEST. TECHNICAL DOCUMENTATION: JOB ID: [id number] [employer]- All Rights Reserved Reading location - IP/workstation name: [email or web address]
[2019-09-17 13:28] LABS: ABSOLUTE EOSINOPHILS # (AUTO) 0.1 10^3/uL (0.0-0.6); ABSOLUTE LYMPHOCYTES (AUTO) 1.7 10^3/uL (0.5-4.7); ABSOLUTE MONOCYTES (AUTO) 0.6 10^3/uL (0.1-1.4); ABSOLUTE NEUT (AUTO) 4.8 10^3/uL (1.7-8.2); BASOPHILS % (AUTO) 0.3 % (0-2); HEMATOCRIT 48.3 % (37.9-51.0); HEMOGLOBIN 16.5 g/dL (13.5-17.0); LYMPHOCYTES % (AUTO) 24.1 % (13-45); MEAN CORPUSCULAR HEMOGLOBIN 30.3 pg (27.0-33.4); MEAN CORPUSCULAR HGB CONC 34.2 g/dL (32.0-36.0); MEAN CORPUSCULAR VOLUME 89 fl (80-97); MONOCYTES % (AUTO) 8.7 % (3-13); PLATELET COUNT 214 10^3/uL (150-450); RED BLOOD COUNT 5.46 10^6/uL (4.35-5.55); RED CELL DISTRIBUTION WIDTH 13.5 % (11.5-14.0); SEGMENTED NEUTROPHILS % (AUTO) 65.9 % (42-78); TOTAL CELLS COUNTED % (AUTO) 100 %; WHITE BLOOD COUNT 7.2 10^3/uL (4.0-10.5)
[2019-09-17 13:49] LABS: ALBUMIN 4.5 g/dL (3.5-5.0); ALKALINE PHOSPHATASE 23 U/L (38-126); ANION GAP 7 (5-19); ASPARTATE AMINO TRANSFERASE 24 U/L (17-59); BILIRUBIN,TOTAL 0.8 mg/dL (0.2-1.3); BLOOD UREA NITROGEN 17 mg/dL (7-20); CALCIUM 9.4 mg/dL (8.4-10.2); CARBON DIOXIDE 30 mmol/L (22-30); CHLORIDE 102 mmol/L (98-107); GLUCOSE 92 mg/dL (75-110); POTASSIUM 4.6 mmol/L (3.6-5.0); TOTAL PROTEIN 7.3 g/dL (6.3-8.2)
[2019-09-17 15:42] VITALS: BP 113/74
--- NOTE | 2019-09-17 15:43 | ER Document Report ---
ED General - General Chief Complaint: Chest Pressure Stated Complaint: CHEST PRESSURE,LIGHTHEADED Time Seen by Provider: 09/17/19 12:33 Primary Care Provider: PHILLIP WRIGHT NP [Primary Care Provider] - Follow up as needed Mode of Arrival: Ambulatory Notes: Patient presents with chest pressure, right upper chest with some mild shortness of breath this morning which included dizziness. It lasted an hour and is now resolved. This is been happening intermittently for several months and is not been checked out. He has no cardiac disease is excellent health works out regularly does not smoke and has no other medical issues. No leg swelling cough, rash or fever. TRAVEL OUTSIDE OF THE [place] IN LAST 30 DAYS: No - Related Data Allergies/Adverse Reactions: No Known Allergies Allergy (Verified 09/17/19 12:36) Home Medications: denies Past Medical History - General Information source: Patient - Social History Smoking Status: Never Smoker Chew tobacco use (# tins/day): No Frequency of alcohol use: Occasional Drug Abuse: None Family History: Reviewed & Not Pertinent Patient has suicidal ideation: No Patient has homicidal ideation: No Renal/ Medical History: Denies: Hx Peritoneal Dialysis Psychiatric Medical History: Denies: Hx Depression Past Surgical History: Reports: Hx Orthopedic Surgery Review of Systems - Review of Systems Notes: REVIEW OF SYSTEMS GEN: Denies fever, chills, weight loss ENT: Denies sore throat, nasal discharge, ear pain EYES: Denies blurry vision, eye pain, discharge CV: See HPI RESP: Denies cough, shortness of breath, wheezing GI: Denies abdominal pain, nausea, vomiting, diarrhea MSK: Denies joint pain/swelling, edema, SKIN: Denies rash, skin lesions LYMPH: Denies swollen glands/lymph nodes NEURO: Denies headache, focal weakness or numbness, dizziness PSYCH: Denies depression, suicidal or homicidal ideation PHYSICAL EXAMINATION General: No acute distress, well-nourished Head: Atraumatic, normocephalic ENT: Mouth normal, oropharynx moist, no exudates or tonsillar enlargement Eyes: Conjunctiva normal, pupils equal, lids normal Neck: No JVD, supple, no guarding CVS: Normal rate, regular rhythm, no murmurs, right upper chest tenderness Resp: No resp distress, equal and normal breath sounds bilaterally GI: Nondistended, soft, no tenderness to palpation, no rebound or guarding Ext: No deformities, no edema, normal range of motion in upper and lower ext Back: No CVA or midline TTP Skin: No rash, warm Lymphatic: No lymphadeopathy noted Neuro: Awake, alert. Face symmetric. GCS 15. Physical Exam - Vital signs Vitals: Temp Pulse Resp BP Pulse Ox 98.6 F 80 16 130/85 H 100 09/17/19 11:44 09/17/19 11:44 09/17/19 11:44 09/17/19 11:44 09/17/19 11:44 Course - Re-evaluation Re-evalutation: 09/17/19 16:13 Reproducible chest pain in a very healthy young male with reproducible exam no rmal EKG and troponin and several months of intermittent symptoms. Suspect musculoskeletal. No clinical evidence of pericarditis no EKG evidence of ischemia arrhythmia or other issues, and labs are normal. Heart score is essentially 0-1. Patient is stable for discharge and will [facility]. I have discussed with the patient there likely diagnosis, aftercare plan, follow-up plans and my usual and customary return precautions. They verbalized understanding of this. - Vital Signs Vital signs: Temp Pulse Resp BP Pulse Ox 98.0 F 65 16 113/74 100 09/17/19 15:39 09/17/19 15:39 09/17/19 15:39 09/17/19 15:39 09/17/19 15:39 - Laboratory Result Diagrams: 09/17/19 13:14 09/17/19 13:14 Laboratory results interpreted by me: 09/17/19 09/17/19 13:14 15:17 Alkaline Phosphatase 23 L Urine Ascorbic Acid 20 H - Diagnostic Test Radiology reviewed: Image reviewed, Reports reviewed - EKG Interpretation by Ia EKG shows normal: Sinus rhythm Rate: Normal When compared to previous EKG there are: Previous EKG unavailable - Of note no acute ischemic change Discharge - Discharge Clinical Impression: Chest pressure Condition: Good Disposition: HOME, SELF-CARE Instructions: Chest Pain of Unclear Cause ([facility]) Referrals: PHILLIP WRIGHT NP [Primary Care Provider] - Follow up as needed
[2019-09-17 15:44] LABS: APPEARANCE,URINE CLEAR; BILIRUBIN,URINE NEGATIVE (NEGATIVE); COLOR,URINE YELLOW; GLUCOSE, URINE NEGATIVE (NEGATIVE); KETONES,URINE NEGATIVE (NEGATIVE); PROTEIN,URINE NEGATIVE (NEGATIVE); URINE SPECIFIC GRAVITY 1.011; UROBILINOGEN,URINE NEGATIVE mg/dL (<2.0)
[2019-09-17 15:55] LABS: URINE AMPHETAMINES SCREEN NEGATIVE; URINE BARBITURATES SCREEN NEGATIVE; URINE BENZODIAZEPINES SCREEN NEGATIVE; URINE COCAINE SCREEN NEGATIVE; URINE MARIJUANA (THC) SCREEN NEGATIVE; URINE METHADONE SCREEN NEGATIVE; URINE PHENCYCLIDINE SCREEN NEGATIVE
--- NOTE | 2019-09-17 19:37 | EKG REPORT ---
SEVERITY:- NORMAL ECG - SINUS RHYTHM : Confirmed by: Vianney Flaherty MD 17-Sep-2019 19:36:28
== END 2019-09-17 16:00 | disposition home or self-care (01) ==
LOC: ER 11:33
DX: R07.9 Chest pain, unspecified (principal); R42 Dizziness and giddiness; R06.02 Shortness of breath
CPT/HCPCS: 36415; 71046; 80053; 80307; 81001; 84484; 85025; 93005; 93010

== ENCOUNTER 2019-12-20 13:33 | Emergency (ER) | payer OTHER ==
[2019-12-20] MEDS ORDERED: ASPIRIN 81 MG TABLET, CHEWABLE PO ONE (13:46)
--- NOTE | 2019-12-20 13:49 | ER Document Report ---
ED Medical Screen (RME) - General Chief Complaint: Chest Pain Stated Complaint: CHEST PAIN Time Seen by Provider: 12/20/19 13:40 Primary Care Provider: PHILLIP WRIGHT NP [Primary Care Provider] - Follow up as needed Mode of Arrival: Ambulatory Information source: Patient Notes: 44-year-old male who is primarily healthy presents to the emergency department with complaints of feeling his heart racing. Reports he was intimate with his yesterday when he felt his heart racing and became short of breath. He reports same thing happened today when he was not do anything. Denies nausea vomiting. Reports some chest tightness. Reports he has no cardiac history but his grandfather on his mother's side of a heart attack at the age of 50. He also adds that that grandfather did not take care of himself. Patient works at a [employer] in the office. No known COVID exposure. Patient reports no smoking or drugs but reports occasional rare alcohol. I have greeted and performed a rapid initial assessment of this patient. A comprehensive ED assessment and evaluation of the patient, analysis of test results and completion of the medical decision making process will be conducted by additional ED providers. TRAVEL OUTSIDE OF THE [place] IN LAST 30 DAYS: No - Related Data Allergies/Adverse Reactions: No Known Allergies Allergy (Verified 09/17/19 12:36) Past Medical History Renal/ Medical History: Denies: Hx Peritoneal Dialysis Psychiatric Medical History: Denies: Hx Depression Past Surgical History: Reports: Hx Orthopedic Surgery Doctor's Discharge - Discharge Referrals: PHILLIP WRIGHT NP [Primary Care Provider] - Follow up as needed
[2019-12-20 13:54] VITALS: BP 136/93
--- NOTE | 2019-12-20 13:58 | ER Document Report ---
ED General - General Chief Complaint: Chest Pain Stated Complaint: CHEST PAIN Time Seen by Provider: 12/20/19 13:40 Primary Care Provider: PHILLIP WRIGHT NP [Primary Care Provider] - Follow up as needed Mode of Arrival: Ambulatory Information source: Patient TRAVEL OUTSIDE OF THE [place] IN LAST 30 DAYS: No - HPI Onset: Other - last night and again this morning Onset/Duration: Sudden Quality of pain: Pressure Severity: Moderate Pain Level: 2 Associated symptoms: Shortness of breath, Other - Palpitations Exacerbated by: Denies Relieved by: Denies Similar symptoms previously: Yes - one time before back in September 2019 Recently seen / treated by doctor: Yes - here in the [facility] in September 2019 Notes: 44 year old male with no significant PMH here in the ER for palpitations, mild chest pain, and mild shortness of breath. The patient said he had an episode of these symptoms before going to bed last night and again this morning. The patient denies recent fevers, chills, sweats, nausea, vomiting, cough, sick contacts, recent travel. The patient was seen in the ER in September 2019 for chest pain and he had a negative work up then. Patient says he felt like his heart was racing last night and this morning but he never checked his pulse (he doest know how to). - Related Data Allergies/Adverse Reactions: No Known Allergies Allergy (Verified 12/20/19 14:02) Past Medical History - General Information source: Patient - Social History Smoking Status: Never Smoker Frequency of alcohol use: Occasional Drug Abuse: None Lives with: Family Family History: Reviewed & Not Pertinent Patient has suicidal ideation: No Patient has homicidal ideation: No Renal/ Medical History: Denies: Hx Peritoneal Dialysis Psychiatric Medical History: Denies: Hx Depression Past Surgical History: Reports: Hx Orthopedic Surgery Review of Systems - Review of Systems Constitutional: No symptoms reported EENT: No symptoms reported Cardiovascular: Chest pain, Palpitations Respiratory: Short of breath Gastrointestinal: No symptoms reported Genitourinary: No symptoms reported Male Genitourinary: No symptoms reported Musculoskeletal: No symptoms reported Skin: No symptoms reported Hematologic/Lymphatic: No symptoms reported Neurological/Psychological: No symptoms reported -: Yes All other systems reviewed and negative Physical Exam - Vital signs Vitals: Temp Pulse Resp BP Pulse Ox 98.7 F 90 17 136/93 H 98 12/20/19 13:53 12/20/19 13:53 12/20/19 13:53 12/20/19 13:53 12/20/19 13:53 - Notes Notes: GENERAL: Well-appearing, well-nourished and in no acute distress. HEAD: Atraumatic, normocephalic. EYES: Pupils equal round and reactive to light, extraocular movements intact, sclera anicteric, conjunctiva are normal. ENT: External ears normal, nares patent, oropharynx clear without exudates. Moist mucous membranes. NECK: Normal range of motion, supple without lymphadenopathy or JVD. LUNGS: Breath sounds clear to auscultation bilaterally and equal. No wheezes rales or rhonchi. HEART: Regular rate and rhythm without murmurs, rubs or gallops. ABDOMEN: Soft, nontender, normoactive bowel sounds. No guarding, no rebound. No masses appreciated. EXTREMITIES: Normal range of motion, no pitting or edema. No clubbing or cyano sis. NEUROLOGICAL: No focal deficits. Normal speech, normal gait. PSYCH: Normal mood, normal affect. SKIN: Warm, Dry, normal turgor, no rashes or lesions noted. Course - Re-evaluation Re-evalutation: 12/20/19 15:56 The patient has no symptoms here in the ER now but he had palpitations last night and this morning with some mild chest pains and shortness of breath. The patient was seen for similar symptoms in September 2019 here and had a negative work up then as well. The patient had a CBC, CMP, Trop, TSH, D-Dimer all which were unremarkable today. Patient's EKG today is normal in appearance and looks like his previous. Patient's chest xray is also completely normal in appearance. Patient was told he could be having anxiety but he should follow up with his PCP or a [employer] to set up an outpatient gang rider. Although a true arrhythmia (such as runs of SVT) seems unlikely this could explain the symptoms he has been having. - Vital Signs Vital signs: Temp Pulse Resp BP Pulse Ox 98.7 F 90 17 136/93 H 99 12/20/19 14:03 12/20/19 13:53 12/20/19 13:53 12/20/19 13:53 12/20/19 14:02 - Laboratory Result Diagrams: 12/20/19 13:56 12/20/19 13:56 Laboratory results interpreted by me: 12/20/19 13:56 Sodium 136.9 L Alkaline Phosphatase 26 L - Diagnostic Test Radiology reviewed: Image reviewed, Reports reviewed - EKG Interpretation by Me EKG shows normal: Sinus rhythm, Celor[place], Intervals, QRS Complexes, ST-T Waves Rate: Normal Rhythm: NSR Discharge - Discharge Clinical Impression: Palpitations Chest pain Qualifiers: Chest pain type: unspecified Qualified Code(s): R07.9 - Chest pain, unspecified Condition: Stable Disposition: HOME, SELF-CARE Instructions: Chest Pain of Unclear Cause ([facility]), Palpitations (Irregular or Rapid Heartrate) ([facility]) Additional Instructions: Follow up with a primary care doctor and with a [facility]. You should consider having an outpatient gang rider to try and record these "spells." You have had lab work (CBC, CMP, D-Dimer, Troponin, TSH), an EKG, and a chest Xray in the ER all which were within normal limits. Referrals: PHILLIP WRIGHT NP [Primary Care Provider] - Follow up as needed
[2019-12-20 14:31] LABS: ALBUMIN 4.5 g/dL (3.5-5.0); ALKALINE PHOSPHATASE 26 U/L (38-126); ANION GAP 6 (5-19); ASPARTATE AMINO TRANSFERASE 24 U/L (17-59); BILIRUBIN,TOTAL 0.9 mg/dL (0.2-1.3); BLOOD UREA NITROGEN 19 mg/dL (7-20); CALCIUM 9.5 mg/dL (8.4-10.2); CARBON DIOXIDE 30 mmol/L (22-30); CHLORIDE 101 mmol/L (98-107); GLUCOSE 97 mg/dL (75-110); POTASSIUM 4.3 mmol/L (3.6-5.0)
--- NOTE | 2019-12-20 14:33 | RADIOLOGY REPORT (SQ) ---
EXAM DESCRIPTION: CHEST SINGLE VIEW IMAGES COMPLETED DATE/TIME: 12/20/2019 2:11 pm REASON FOR STUDY: cp COMPARISON: None. EXAM PARAMETERS: NUMBER OF VIEWS: One view. TECHNIQUE: Single frontal radiographic view of the chest acquired. RADIATION DOSE: NA LIMITATIONS: None. FINDINGS: LUNGS AND PLEURA: No opacities, masses or pneumothorax. No pleural effusion. MEDIASTINUM AND HILAR STRUCTURES: No masses. Contour normal. HEART AND VASCULAR STRUCTURES: Heart normal in size. Normal vasculature. BONES: No acute findings. HARDWARE: None in the chest. OTHER: No other significant finding. IMPRESSION: NO ACUTE RADIOGRAPHIC FINDING IN THE CHEST. TECHNICAL DOCUMENTATION: JOB ID: [id number] 2010 [employer]- All Rights Reserved Reading location - IP/workstation name: [email or web address]
[2019-12-20 14:34] LABS: ABSOLUTE EOSINOPHILS # (AUTO) 0.2 10^3/uL (0.0-0.6); ABSOLUTE LYMPHOCYTES (AUTO) 1.9 10^3/uL (0.5-4.7); ABSOLUTE MONOCYTES (AUTO) 0.7 10^3/uL (0.1-1.4); ABSOLUTE NEUT (AUTO) 4.2 10^3/uL (1.7-8.2); BASOPHILS % (AUTO) 0.2 % (0-2); EOSINOPHILS % (AUTO) 2.5 % (0-6); HEMATOCRIT 46.2 % (37.9-51.0); HEMOGLOBIN 16.1 g/dL (13.5-17.0); LYMPHOCYTES % (AUTO) 26.9 % (13-45); MEAN CORPUSCULAR HEMOGLOBIN 30.8 pg (27.0-33.4); MEAN CORPUSCULAR HGB CONC 34.9 g/dL (32.0-36.0); MEAN CORPUSCULAR VOLUME 88 fl (80-97); MONOCYTES % (AUTO) 10.1 % (3-13); PLATELET COUNT 201 10^3/uL (150-450); RED BLOOD COUNT 5.24 10^6/uL (4.35-5.55); RED CELL DISTRIBUTION WIDTH 13.5 % (11.5-14.0); SEGMENTED NEUTROPHILS % (AUTO) 60.3 % (42-78); TOTAL CELLS COUNTED % (AUTO) 100 %; WHITE BLOOD COUNT 6.9 10^3/uL (4.0-10.5)
--- NOTE | 2019-12-20 15:04 | EKG REPORT ---
SEVERITY:- NORMAL ECG - SINUS RHYTHM : Confirmed by: Max Grier MD 20-Dec-2019 15:04:13
== END 2019-12-20 16:04 | disposition home or self-care (01) ==
LOC: ER 13:33
DX: R00.2 Palpitations (principal); R07.9 Chest pain, unspecified; R00.0 Tachycardia, unspecified
CPT/HCPCS: 36415; 71045; 80053; 83735; 84443; 84484; 85025; 85379; 93005; 93010; 99285